=== PATIENT | male | born 1935 | race Caucasian/White ===

== ENCOUNTER 2020-02-14 06:53 | Day surgery (SDC) | payer OTHER ==
--- NOTE | 2020-02-06 10:13 | RAD REPORT ---
EXAM DESCRIPTION: RAD - Chest Pa And Lat (2 Views) - 02/06/2020 10:03 am CLINICAL HISTORY: pre op for surgery Chest pain. COMPARISON: No comparisons TECHNIQUE: PA and lateral views of the chest were obtained. FINDINGS: The lungs are hyperexpanded compatible with COPD. The heart is upper limit of normal in si ze. No fracture or aggressive bony process. IMPRESSION: COPD without acute process identified.
[2020-02-06 10:45] LABS: Absolute Lymphocytes (CBC) 1.6 K/uL (0.7-4.9); Basophils % 0.3 % (0-1.3); Hematocrit 40.3 % (39.6-49.0); Lymphocytes % 26.9 % (15.3-44.8); MPV 7.7 fL (7.6-11.3); RBC Red Blood Cell Count 4.18 M/uL (4.33-5.43)
[2020-02-06 10:50] LABS: Potassium 4.4 mmol/L (3.5-5.1)
--- NOTE | 2020-02-06 18:06 | EKG ---
Test Date: 2020-02-06 Test Time: 08:58:23 Metal Painter: ALONA MEASUREMENT RESULTS: Intervals: Rate: 76 NE: QRSD: 96 QT: 368 QTc: 414 [place]: P: NE: QRS: 32 T: 25 INTERPRETIVE STATEMENTS: Atrial fibrillation Abnormal ECG No previous ECG available for comparison Electronically Signed On 02-06-20 18:06:18 CDT by Reagan Wolfe
[2020-02-14] MEDS ORDERED: propofoL 200 MG/20 ML VIAL IV ONE (07:17)
[2020-02-14] MEDS ORDERED: LIDOCAINE 1% MPF 5 ML VIAL ONE (07:17)
[2020-02-14] MEDS ORDERED: MIDAZOLAM HCL 2 MG/2 ML INJ ONE (07:17)
[2020-02-14] MEDS ORDERED: FENTANYL CITR 100 MCG/2 ML ONE (07:17)
[2020-02-14] MEDS ORDERED: ROCURONIUM 50 MG/5 ML VIAL IV ONE (07:17)
[2020-02-14] MEDS ORDERED: NS 0.9% VIAL 10 ML ONE (08:00)
[2020-02-14] MEDS ORDERED: EPHEDRINE SULF 50 MG/ML VIAL ONE (08:00)
[2020-02-14] MEDS ORDERED: KETOROLAC 30 MG/ML INJ ONE (08:20)
[2020-02-14] MEDS ORDERED: GLYCOPYRROLATE 0.2 MG/ML SYR ONE (08:20)
[2020-02-14] MEDS ORDERED: Ringers Lactate 1,000 ML IV ONE ×2 (08:48→10:03)
[2020-02-14] MEDS ORDERED: CEFAZOLIN/SWI 1gm 1 GM/10 ML SYR ONE (08:49)
[2020-02-14] MEDS ORDERED: NEOSTIGMINE 1 MG/ML -5 ML ONE (08:53)
[2020-02-14] MEDS ORDERED: ONDANSETRON 4 MG/2 ML VIAL ONE (08:53)
[2020-02-14] MEDS ORDERED: HYDROCODONE/APAP 7.5/325 MG TAB ONE (10:16)
[2020-02-14 10:29] VITALS: TEMP 98.2
--- NOTE | 2020-02-14 10:50 | OP ---
Date of Procedure: 02/14/2020 Surgeon: Jean Tarango MD Laundry Marker Supervisor: JAIMIE Foss. Preoperative Diagnosis: Bilateral inguinal hernia. Postoperative Diagnosis: Bilateral inguinal hernia. Procedure: Repair of bilateral inguinal hernia. Estimated Blood Loss: Minimal. Specimen: Cord lipoma and hernia sac from both sides. Anesthesia: General. Complications: None. Disposition: Patient tolerated the procedure in stable condition, taken to Recovery in good general condition. Procedure In Detail: Patient was brought to the OR and placed in supine position. General anesthesi a was begun. The patient was prepped and draped in usual sterile fashion. Marcaine 0.5% was infiltr ated locally. A 15-blade was used to make a 4 cm incision in the right groin after Marcaine 0.5% was infiltrated locally. Then, subcu tissue was divided. Edu fascia was identified and divided. Ap oneurosis was identified and mobilized inferiorly to expose shelving edge and then the aponeurosis op ened through the external ring and ilioinguinal nerve identified and retracted out of the field of di ssection. Cord was mobilized at the pubic tubercle, skeletonized , and large hernia sac and cord lip mundo identified. High ligation of the hernia sac with 2-0 Prolene. Suture ligature and free hand tie done to excise the hernia sac and 2-0 silk was used to tie off the base of the cord lipoma, excised, sent to Pathology. Then, Marlex mesh plug was placed in the internal ring, secured with VersaTack s tapler. Onlay mesh was placed on the inguinal floor, secured medially to the pubic tubercle, inferio r to the shelving edge, laterally to each other, superior to the conjoined tendon. Then, ilioinguina l nerve and cord structures were placed back in anatomical location. Then 2-0 Prolene was used to cl ose the aponeurosis, 3-0 chromic was used to close the Edu fascia. Staple was used to close the s kin. Exact same findings in surgery was occurred on the left side and then sterile dressing was appl ied. Patient was awakened and taken to Recovery in good general condition. Discharge Note: The patient will go to Day Surgery and home when stable. Disposition: Home. Condition: Stable. Discharge Instructions: Resume home medications and diet. Activity as tolerated. No heavy lifting. Remove outer dressing in 2 days. Shower. Keep wound clean and dry. Follow up in my office in 1 w hoopa. Call for appointment. Tylenol No. 3 one tablet p.o. q.4 p.r.n. pain. Ice pack and scrotal sup port as ordered. /MODL Voice ID: [id number] Report ID: [id number]
[2020-02-14 11:20] VITALS: BP 106/42; O2SAT 99
== END 2020-02-14 11:40 | disposition home or self-care (01) ==
LOC: OR 06:53 → MERGE 06:53 → OR 11:40
PROVIDERS: ATTEND Surgery
PROC: 0YUA0JZ Supplement Bilateral Inguinal Region with Synthetic Substitute, Open Approach (ICD-10-PCS; principal; 2020-02-14 07:30)
DX: K40.20 Bilateral inguinal hernia, without obstruction or gangrene, not specified as recurrent (principal); Z11.59 Encounter for screening for other viral diseases; I10 Essential (primary) hypertension; I48.91 Unspecified atrial fibrillation; I25.2 Old myocardial infarction; M19.90 Unspecified osteoarthritis, unspecified site; Z95.5 Presence of coronary angioplasty implant and graft
CPT/HCPCS: 93005; 85025; 80048; 36415; 88302; 71046; 49505; J2704; J3010; J2710; J0690; J7120 ×2; J2405; J2250